=== PATIENT | male | born 1985 | race Caucasian/White ===

== ENCOUNTER 2017-10-01 08:08 | Day surgery (SDC) | payer OTHER ==
[~2017-10-01] VITALS: Ht 200.7 cm; Wt 131.4 kg
[~2017-10-01 08:08] MED LIST: AMOX875 PO; PRED10 PO
[2017-10-01] MEDS ORDERED: CHLORHEXIDINE GLUCONATE 2 % 1 PACK (2 CLOTHS) TOPICAL PRN (08:45)
[2017-10-01] MEDS ORDERED: LACTATED RINGER'S 1000 ML IV PRN (08:45)
[2017-10-01] MEDS ORDERED: LORazepam 1 MG TAB SL SCH (08:45)
[2017-10-01] MEDS ORDERED: SODIUM CHLORID 0.9% 500 ML INJ 500 ML IV SCH (08:45)
[2017-10-01] MEDS ORDERED: INSULIN HUMAN REGULAR 1,000 UNITS/10 ML VIAL SQ PRN (08:45)
[2017-10-01] MEDS ORDERED: METOPROLOL TARTRATE 25 MG TAB PO PRN (08:45)
[2017-10-01] MEDS ORDERED: SODIUM CHLORID 0.9% 500 ML IV PRN (08:45)
[2017-10-01] MEDS ORDERED: POVIDONE IODINE 5% (ANTISEPSIS KIT) 4 APPLICATIONS EACH NARE PRN (08:45)
[2017-10-01] MEDS ORDERED: CLON0.5T PO (09:12)
[2017-10-01] MEDS ORDERED: CITA10TA4 PO (09:12)
[2017-10-01] MEDS ORDERED: BUTA1CAP PO (09:12)
[2017-10-01] MEDS ORDERED: METO1TAB42 PO (09:12)
[2017-10-01 09:14] VITALS: BP 159/62; PULSE 88; RESP 18; TEMP 97.6; O2SAT 96
[2017-10-01 09:26] LABS: AUTOMATED NEUTROPHIL # 6.4 TH/MM3 (1.8-7.7); BASOPHIL # 0.1 TH/MM3 (0-0.2); BASOPHIL % 0.7 % (0.0-2.0); EOSINOPHIL # 0.1 TH/MM3 (0-0.4); EOSINOPHIL % 1.4 % (0.0-4.0); HEMATOCRIT 44.6 % (39.0-51.0); HEMOGLOBIN 15.2 GM/DL (13.0-17.0); LYMPH % 22.2 % (9.0-44.0); LYMPHOCYTE # 2.1 TH/MM3 (1.0-4.8); MEAN CELL VOLUME 85.2 FL (80.0-100.0); MONOCYTE # 0.6 TH/MM3 (0-0.9); NEUT % 68.7 % (16.0-70.0); PLATELET COUNT 249 TH/MM3 (150-450); RED BLOOD COUNT 5.23 MIL/MM3 (4.50-5.90); RED CELL DISTRIBUTION WIDTH 13.4 % (11.6-17.2); WHITE BLOOD COUNT 9.3 TH/MM3 (4.0-11.0)
[2017-10-01 09:39] LABS: PROTHROMBIN TIME - PATIENT 10.1 SEC (9.8-11.6)
[2017-10-01 09:43] LABS: BICARBONATE 26.8 MEQ/L (21.0-32.0); CALCIUM 8.8 MG/DL (8.5-10.1); CREATININE 0.78 MG/DL (0.60-1.30)
[2017-10-01] MEDS ORDERED: MIDAZOLAM HCL 2 MG/2 ML VIAL ONE ×2 (10:57→12:04)
[2017-10-01] MEDS ORDERED: ISOPROTERENOL INJ PREMIX 50 ML IV ONE (10:57)
[2017-10-01] MEDS ORDERED: PROPOFOL 200 MG/20 ML AMP ONE (10:57)
[2017-10-01] MEDS ORDERED: HEPARIN-NS/PF FLUSH BAG 1,000 ML IV FLUSH ONE (11:07)
[2017-10-01] MEDS ORDERED: SODIUM CHLOR 0.9% 250 ML INJ 250 ML IV PRN (12:00)
[2017-10-01] MEDS ORDERED: oxyCODONE/ACETAMINOPHEN 5 MG/325 MG TAB PO PRN ×2 (12:00)
[2017-10-01] MEDS ORDERED: BACITRACIN OINT 0.9 GM PKT TOP ONE (12:00)
[2017-10-01] MEDS ORDERED: LIDOCAINE HCL 1% 50 ML VIAL INFIL PRN (12:00)
[2017-10-01] MEDS ORDERED: ONDANSETRON HCL 4 MG/2 ML VIAL IV PUSH PRN (12:00)
[2017-10-01] MEDS ORDERED: ATROPINE SULFATE 1 MG/ML VIAL IV PUSH PRN (12:00)
[2017-10-01] MEDS ORDERED: LORazepam 2 MG/ML VIAL IV PUSH PRN (12:00)
[2017-10-01] MEDS ORDERED: ACETAMIN 325 MG/BUTALBITAL 50 MG/CAFFEINE 40 MG TAB PO PRN (12:15)
--- NOTE | 2017-10-01 12:15 | CATHPROC ---
Patient Name: RAOUL GERONIMO Study #: [id number] Initial MD: Julián Bauman Date of : 1985 Study Date: 10/01/2017 Cardiac Catheterization Report 10/01/2017 12:14:42 PM Financial #: [id number] 1 of 9 Patient Name: RAOUL GERONIMO Study #: [id number] Initial MD: Julián Bauman Date of : 1985 Study Date: 10/01/2017 Entire Case Report Patient Information Patient Name RAOUL GERONIMO Date of 1985 Age 31 years Financial # [id number] Gender M AlternateID Lab Number 2 Room Number DC10 Height (in) 79.0 Height (cm) 200.6 BSA 2.67 Weight (lbs) 289.1 Weight (kg) 131.4 Patient Address/Phone Number Home Address [facility] Home Phone Number [phone] [place] [phone] Study Information Study Number Admission Scheduled Start Study Start [id number] Oct 01 2017 8:08AM 10/01/2017 Oct 01 2017 10:34AM [place] [facility] Electrophysiology Study Admit Source Facility Department Other [facility] - Environmental Services Floor Tech Physician and Clinical Staff Initial Julián Rivera Utilization Review Rn Felisa Ochoa,TRAIN ENGINEER TECH2 Other Anesthesia, WALLBOARD WORKER Recorder Abeba Hutchins RN Recorder Amrit Portillo,BLANCA Scrub Michelle Eldridge RCIS Procedures Performed Procedure Ablation Procedure 10/01/2017 12:14:42 PM Financial #: [id number] 2 of 9 Patient Name: RAOUL GERONIMO Study #: [id number] Initial MD: Julián Bauman Date of : 1985 Study Date: 10/01/2017 Equipment Time Bleach Range Operator Description Size Mfg Part Number Used/Scraped [id number] 11:18 [employer] PACK, CCL CUSTOM * Used *[id number] 11:18 [employer] PACER GARCIA, LIMB * 2530 *[id number] Used [id number] 11:18 [employer] BLANKET,WARM AIR CCL * Used *[id number] 354388 11:25 [employer] MED[employer] CATHETER, JSN, QUAD FR 5 Used *[id number] 455438 11:25 [employer] MED[employer] CATHETER, JSN, QUAD FR 5 Used *[id number] [id number] 11:25 [employer] MED[employer] CATHETER, JSN, QUAD FR 5 Used *[id number] 803292 11:25 [employer] MEDICAL CATHETER, JSN, QUAD FR 5 Used *[id number] [id number] 11:18 [employer] MEDICAL ELECTRODE KIT, DWAIN X SURFACE * Used *8668025 924059 11:25 [employer] SHEATH, EPS, FR5 FAST CATH FR 5 Used *[id number] 472266 11:25 [employer] MED[employer] SHEATH, EPS, FR5 FAST CATH FR 5 Used *[id number] 176775 11:25 [employer] MED[employer] SHEATH, EPS, FR5 FAST CATH FR 5 Used *[id number] 078960 11:25 [employer] MEDICAL SHEATH, EPS, FR6 FAST CATH FR 6 Used *[id number] 903694 11:25 [employer] MEDICAL SHEATH, EPS, FR8 FAST CATH FR 8 Used *[id number] [facility], ELECTROSURGICAL 11:18 * [id number] *[id number] Used SURGICAL GROUNDING (BLUE) LNQSYS 11:46 [employer] LOOP RECORDERS Used *[id number] Equipment Model, Serial, Lot Number and Expiration Data Description Model Number Serial Number Lot Number Expiration Date LOOP RECORDERS [id number] 03-10-2018 Insurance Information Insurance Payor Private Health Insurance Third Constitution Party Third Constitution Party Number UHC PPO UHCPPO History: Allergies Allergy Reaction cefaclor Labs 10/01/2017 12:14:42 PM Financial #: [id number] of 9 Patient Name: RAOUL GERONIMO Study #: [id number] Initial MD: Julián Bauman Date of : 1985 Study Date: 10/02/19 18 Hgb (g/dl) Hct (%) RBC (MIL/MM3) WBC (l/cumm) Platelets (thousands) 11.60-17.00 35.00-51.00 4.00-5.90 4.00-11.00 150.00-450.00 15.0 44 5.2 9.3 249 Glucose (mg/dl) BUN (mg/dl) Creatinine (mg/dl) BUN:Creatinine (1:x) 74.00-106.00 7.00-18.00 0.50-1.30 10.00-20.00 93 10 0.7 14.3 Na (meq/l) K (meq/l) 136.00-145.00 3.50-5.10 141 3.7 INR (PTT:PT) 0.90-1.10 1 Medication Medication Total Dose (Bolus/Oral) Medication Total Dosage/Unit 1% XYLOCAINE 40 mL Medications (Bolus/Oral) Medication Time Given Dosage/Unit Administered By Reason 1% XYLOCAINE 10/01/2017 11:25:56 AM 20 mL Julián Bauman 20 mL 1% XYLOCAINE given in lab by Julián Bauman in Right Groin via Subcutaneous. 1% XYLOCAINE 10/01/2017 11:56:52 AM 20 mL Julián Bauman 20 mL 1% XYLOCAINE given in lab by Julián Bauman via Subcutaneous. Ordered by Julián Bauman. chest Medication (Drip) Medication Time Given Dosage/Unit Concentration/Unit Diluent (ml) Solution ANCEF 10/01/2017 11:56:45 AM 2 g 2 g ANCEF given in lab by MARILU Hernandez via Peripheral IV. ISUPREL 10/01/2017 11:38:42 AM 4 mcg/min 1 mg 250 NaCl .9 4 mcg/min ISUPREL given in lab by Julián Bamuan via Peripheral IV. Pump/Drip Flow = 60 ml/hr using Na Cl .9 with a concentration of 1 mg in 250 ml. Ordered by Julián Bauman. Reason: As per physicians verbal order. 10/01/2017 12:14:42 PM Financial #: [id number] 4 of 9 Patient Name: RAOUL GERONIMO Study #: [id number] Initial MD: Julián Bauman Date of : 1985 Study Date: 10/01/2017 Initial Case Assessment Cardiovascular HR Rhythm NIBP Chest Pain 75 sr 142/87 0 Edema Present Skin color Skin None Normal Warm Dry Circulatory - Right Pulses Dorsalis Pedis 2 Scale (0,1,2,3,4,d) Circulatory - Left Pulses Dorsalis Pedis 2 Scale (0,1,2,3,4,d) Circulatory - Lower Extremities Color Lower Right Color Lower Left Normal Normal Neurological State Oriented to time-place- Alert Moves all extremities person Respiration - General Respiration Rate SpO2 (%) (B/min) 18 99 10/01/2017 12:14:42 PM Financial #: [id number] 5 of 9 Patient Name: RAOUL GERONIMO Study #: [id number] Initial MD: Julián Bauman Date of : 1985 Study Date: 10/01/2017 Final Case Assessment Cardiovascular HR Rhythm NIBP Chest Pain 91 sr 102/52 0 Edema Present Skin color Skin None Normal Warm Dry Circulatory - Right Pulses Dorsalis Pedis 2 Scale (0,1,2,3,4,d) Circulatory - Left Pulses Dorsalis Pedis 2 Scale (0,1,2,3,4,d) Circulatory - Lower Extremities Color Lower Right Color Lower Left Normal Normal Neurological State Oriented to time-place- Alert Moves all extremities person Respiration - General Respiration Rate SpO2 (%) O2 (lpm) (B/min) 16 98 6 Chronological Log Time Study Chronological Log 11:03:32 Patient arrived via Bed. 11:03:33 Patient Name, D.O.B, / Armband Verified By R.N. 11:03:33 Consent signed by the physician and the patient and verified by the Environmental Services Floor Tech staff. 11:03:34 Pre-op and post- op instructions given; patient acknowledges understanding of instructions. 11:03:35 Verbal Stimulation=2 Physical Stimulation=2 Airway=2 Respiration=2 TOTAL=8. (0=absent, 1=li mited, 2=present) 11:03:38 Patient has been NPO for More than 6Hrs. 11:03:38 Skin Breakdown- 11:03:39 Patient Warmer Placed on the Table. 11:03:40 Disposable Defibrillator Pads Placed On Patient. 10/01/2017 12:14:42 PM Financial #: [id number] 6 of 9 Patient Name: RAOUL GERONIMO Study #: [id number] Initial MD: Julián Bauman Date of : 1985 Study Date: 10/01/2017 11:03:40 Disposable Defibrillator Pads Placed On Patient. 11:03:47 Anoop Prominences Protected 11:03:47 A # 20 IV was noted in the Antecubital (left). Grade = 0 0.9ns kvo 11:03:48 A # 20 IV was noted in the Antecubital (right). Grade = 0 0.9ns kvo 11:03:49 History and physical on the chart or being dictated. 11:05:31 MD arrived. Assessment: Initial Case, HR=75 BPM, Rhythm=sr, BHOP=714/87 mmhg, Chest Pain=0, Edema=None, Col or=Normal, Skin = Warm, Dry Right Pulses: Roel Ped=2 Left Pulses: Roel Ped=2 11:13:21 Lower Right Extremities: Color=Normal Lower Left Extremities: Color=Normal Neurological: State=Alert, Ox3, BAUTISTA Respiration: Resp=18 B/min, SpO2=99 % 11:14:53 Table restraints applied according to hospital policy 11:16:12 Bilateral groins prepped with 2% chlorhexidine, and draped after a 3 minute waiting time. Time Out. Correct patient, procedure, procedure equipment, site and side verified with physicia n present. Time 11:25:05 concurred by MD, individual staff and WALLBOARD WORKER. Time Out #2 - Consents verified, patient in correct position, all results are labled and displa yed, safety precautions 11:25:30 taken, antibiotics administered. Time out concurred by MD, individual staff and WALLBOARD WORKER in procedu re 11:25:49 Case Start 11:25:56 20 mL 1% XYLOCAINE given in lab by Julián Bauman in Right Groin via Subcutaneous. 11:26:12 Vascular access was obtained in the Fem Vein (right). 11:26:12 Vascular access was obtained in the Fem Vein (right). 11:26:19 Vascular access was obtained in the Fem Vein (right). 11:26:27 Vascular access was obtained in the Fem Vein (right). 11:28:00 A SHEATH, EPS, FR5 FAST CATH FR 5 was advanced into the Fem Vein (right) using the Modified Seldinger technique. 11:28:05 A SHEATH, EPS, FR5 FAST CATH FR 5 was advanced into the Fem Vein (right) using the Modified Seldinger technique. 11:28:23 A SHEATH, EPS, FR5 FAST CATH FR 5 was advanced into the Fem Vein (right) using the Modified Seldinger technique. 11:28:33 A SHEATH, EPS, FR6 FAST CATH FR 6 was advanced into the Fem Vein (right) using the Modified Seldinger technique. A CATHETER, JSN, QUAD FR 5 was advanced vis Fem Vein (right) and placed in the CS. Placement wa s visually 11:30:48 confirmed under fluoroscopy. A CATHETER, JSN, QUAD FR 5 was advanced vis Fem Vein (right) and placed in the HIS. Placement w as visually 11:31:09 confirmed under fluoroscopy. A CATHETER, JSN, QUAD FR 5 was advanced vis Fem Vein (right) and placed in the HRA. Placement w as visually 11:31:42 confirmed under fluoroscopy. A CATHETER, JSN, QUAD FR 5 was advanced vis Fem Vein (right) and placed in the RVA. Placement w as visually 11:31:53 confirmed under fluoroscopy. 11:33:11 EPS in progress. 11:34:00 MM out. JF in. 4 mcg/min ISUPREL given in lab by Julián Bauman via Peripheral IV. Pump/Drip Flow = 60 ml/hr us ing NaCl .9 with a 11:38:42 concentration of 1 mg in 250 ml. Ordered by Julián Bauman. Reason: As per physicians verbal ord er. 11:48:00 Isuprel off, EPS done. Case now transitioning to Loop Record implant Time Out. Correct patient, procedure, procedure equipment, site and side verified with physicia n present. Time 11:56:10 concurred by , individual staff and WALLBOARD WORKER. 10/01/2017 12:14:42 PM Financial #: [id number] 7 of 9 Patient Name: RAOUL GERONIMO Study #: [id number] Initial MD: Julián Bauman Date of : 1985 Study Date: 10/01/2017 Time Out #2 - Consents verified, patient in correct position, all results are labled and displ ayed, safety precautions 11:56:16 taken, antibiotics administered. Time out concurred by MD, individual staff and WALLBOARD WORKER in proced ure 11:56:45 2 g ANCEF given in lab by Anesthesia, WALLBOARD WORKER via Peripheral IV. 11:56:52 20 mL 1% XYLOCAINE given in lab by Julián Bauman via Subcutaneous. Ordered by Hua Bauman chest 11:57:00 MM in JF out. 11:57:22 Loop recorder inserted. 11:59:40 Sterile dressing applied to Left chest site. Site wnl. 12:03:44 All catheter(s) removed without difficulty. 12:03:53 All sheaths removed; pressure applied to access site by TF. 12:08:14 Case End 12:08:23 No case complications noted. 12:08:33 Ablation procedure performed: EPS study only w loop recorder insertion. 12:08:41 EP Procedure was performed. 12:09:24 DOCU called. Spoke to Dejan 12:10:03 Bedside Report will be given. Assessment: Final Case, HR=91 BPM, Rhythm=sr, TLZH=454/52 mmhg, Chest Pain=0, Edema=None, [place] r=Normal, Skin = Warm, Dry Right Pulses: Roel Ped=2 Left Pulses: Roel Ped=2 12:10:11 Lower Right Extremities: Color=Normal Lower Left Extremities: Color=Normal Neurological: State=Alert, Ox3, BAUTISTA Respiration: Resp=16 B/min, SpO2=98 %, O2=6 lpm 12:16:39 Sterile dressing applied to right groin site. Site WNL 12:18:50 Patient moved to [facility] End Study - Contrast Media Used In Study Contrast Total Opened (mL) Total Used (mL) Total Wasted (mL) Unspecified 0 0 0 End Study - Maximum Contrast Load Max Contrast Load (mL) 938.6 End Study - Radiation Exposure Fluoro Time (minutes) 1.9 10/01/2017 12:14:42 PM Financial #: [id number] 8 of 9 Patient Name: RAOUL GERONIMO Study #: [id number] Initial MD: Julián Bauman Date of : 1985 Study Date: 10/01/2017 End Study - Sheaths Sheaths Pulled By Sheath Hold Time (min) Felisa Ochoa 15 End Study - Patient Disposition Complications Transferred To Interventional Outcome No Telemetry Bed successful 10/01/2017 12:14:42 PM Financial #: [id number] 9 9
[2017-10-01] MEDS ORDERED: PILL SPLITTER OTHER PRN (12:30)
[2017-10-01] MEDS ORDERED: clonazePAM 0.5 MG TAB PO SCH (21:00)
[2017-10-02] MEDS ORDERED: METOPROLOL SUCCINATE 25 MG EXTENDED RELEASE TAB PO SCH (09:00)
[2017-10-02] MEDS ORDERED: CITALOPRAM HYDROBROMIDE 20 MG TAB PO SCH (09:00)
--- NOTE | 2017-10-02 17:54 | MP ---
cc: Julián Bauman MD, Hanscy MD Hill, John M DATE OF OPERATION: 10/01/2017 INDICATIONS FOR PROCEDURE: Mr. Koch is a 31-year-old gentleman with an episode of tachyarrhythmia, negative electrophysiology study who will undergo loop recorder insertion. The risks, the nature and the benefits of the procedure were clearly said to him. Risks include pneumothorax, infection and even . He understood and agreed to proceed. PROCEDURE IN DETAIL: As informed consent was obtained prior to electrophysiology study, the patient was then kept on the table where he was prepped and draped in the usual sterile fashion. Conscious sedation was initiated and maintained throughout the procedure by the anesthesiologist. Once sedation was verified, the left parasternal area was anesthetized with 2% Xylocaine. Using a cutter less than 1 cm incision was made and then the loop was injected under the skin. After adequate sensing obtained, the border was reapproximated using Dermabond and Steri-Strip. No incident to report. The patient tolerated the procedure. Blood loss minimal. IMPLANTED HARDWARE: 1. The implanted loop recorder is a [employer]. 2. Sensing was at 0.47 milliseconds. SETTINGS: Setting was set craig under 40, tachy over 160. CONCLUSIONS: Successful loop recorder insertion COMMENT AND RECOMMENDATIONS: The patient is going to be observed and discharged home later today. MD WU Hale/ , 05:38 PM , 05:53 PM
--- NOTE | 2017-10-02 18:05 | MA ---
cc: Julián Bauman MD DATE: 10/01/2017 DATE OF PROCEDURE: 10/02/2007 PROCEDURE PERFORMED: Electrophysiologic study, CS cannulation, repeat electrophysiologic study on Isuprel infusion. INDICATIONS: Mr. Koch is a 31-year-old gentleman with frequent episodes of tachyarrhythmia and palpitations, referred for electrophysiology study and ablation. The risks, the nature and the benefits of the procedure were clearly said to him. The risks include pneumothorax, cardiac perforation, stroke and even . The patient understood and agreed to proceed. PROCEDURE: After written informed consent was obtained, the patient was brought to the EP lab where he was prepped and draped in the usual sterile fashion. Conscious sedation was initiated and maintained throughout the procedure by the anesthesiologist. Once sedation was verified, the right inguinal area was anesthetized with 2% Xylocaine. Using modified Seldinger technique, the right femoral vein was cannulated on 4 occasions. Four guidewires were advanced over the wire, three 5 and a 6-[place] Hemaquet were advanced. Then, under fluoroscopic guidance through the 5 and 6-[place] Hemaquet, four 5-[place] Lindsay curved quadripolar electrophysiology catheters were advanced and positioned on the His, the upper right atrium, coronary sinus and right ventricular apex. Basic intervals were measured and they were within normal limits. At this point, atrial pacing protocol was performed. Atrial pacing protocol consisted of incremental atrial pacing as well as program stimulation at 410 cycle length and up to 1 extrastimuli delivered. No tachyarrhythmia was induced. Pacing from the coronary sinus showed no preexcitation. Atrial pacing protocol was performed at the coronary sinus. No tachyarrhythmia was induced. Then, ventricular pacing protocol was performed. There was VA conduction. No tachyarrhythmia was induced. Isuprel infusion was initiated. Atrial and ventricular pacing protocol was repeated again. No tachyarrhythmia was induced. Post-isuprel, no tachyarrhythmia was induced. At that point the procedure was complete. All catheters were removed. The patient complained of frequent tachyarrhythmia, very symptomatic, a loop recorder will be inserted. No incident reported. The patient tolerated the procedure. Blood loss minimal: 1. ELECTROCARDIOGRAM: At baseline, the patient was in sinus. Post-procedure, electrocardiogram was unchanged. 2. BASIC INTERVAL: Base cycle length was around 786 milliseconds, A-H was around 90 and HV was around 42 milliseconds. 3. ATRIAL PACING PROTOCOL: Wenckebach of the node was around 320 milliseconds, ERP of the node 600, 220 milliseconds. No tachyarrhythmia was induced. 4. VENTRICULAR PACING PROTOCOL: There was VA conduction. No tachyarrhythmia was induced. CONCLUSION: Negative electrophysiology study for supraventricular tachyarrhythmia: COMMENT AND RECOMMENDATION: The patient is going to be to be kept on the table. A loop recorder will be inserted for monitoring. MD WU Hale/MACARIO , 05:36 PM , 06:04 PM
--- NOTE | 2017-10-03 10:36 | EKG ---
Date Performed: 10/01/2017 Time Performed: 09:25:22 PTAGE: 31 years EKG: Sinus rhythm with PAC(s). IV conduction defect Septal T wave changes are nonspecific Abnormal ECG NO PREVIOUS TRACING DOCTOR: Ramiro Hays Interpretating Date/Time 10/03/2017 10:35:08
== END 2017-10-01 15:09 | disposition home or self-care (01) ==
LOC: HDOC 08:08 → HDIC 08:12 → HDOC 15:09
PROVIDERS: ATTEND Internal Medicine Interventional Cardiology
DX: I48.92 Unspecified atrial flutter (principal); R00.0 Tachycardia, unspecified
CPT/HCPCS: 00537; 33282; 80048; 85025; 85610; 85730; 86850; 86900; 86901; 93005; 93620; 93623; C1730; C1764; J1644; J2250; J3010; J7040